=== PATIENT | female | born 1935 | race Caucasian/White ===

== ENCOUNTER → 2016-10-24 | Outpatient (CLI) | payer MEDICARE, OTHER ==
--- NOTE | 2016-10-24 09:23 | RAD ---
APPROVED REPORT Patient Location : OUT-PATIENT Indications Lower Extremity Edema : Bilateral Risk Factors Obesity Deep System Deep Venous Thrombosis present : No Deep Venous Reflux present : No Findings The bilateral greater and lesser saphenous veins were imaged for evidence of reflux. The right great saphenous vein measures approximately 8 mm at the saphenofemoral junction and does no t show any evidence of reflux. The left great saphenous vein measures approximately 8 mm and does not show any evidence of reflux. The bilateral lesser saphenous veins do not demonstrate any evidence of reflux. Limited Blanco scale imaging of the bilateral greater and lesser saphenous veins does not reveal any ev idence of thrombus. Critical Notification Critical Value: No <Conclusion> Negative for reflux of the bilateral lower extremities.
== END | disposition home or self-care (01) ==
LOC: US 08:30
PROVIDERS: ATTEND Internal Medicine Cardiovascular Disease
DX: R60.0 Localized edema (principal)
CPT/HCPCS: 93970

== ENCOUNTER 2017-07-20 14:26 | Inpatient (IN) | payer MEDICARE ==
[2017-07-20] MEDS ORDERED: 0.9 % SODIUM CHLORIDE 10 ML DISP.SYRIN. IV (15:15)
[2017-07-20 15:16] LABS: ADD MAN DIFF? NO
[2017-07-20 15:20] LABS: BASO % 0 % (0-3); EOS % 0 % (0-3); HEMOGLOBIN 13.7 g/dL (12.0-15.5); LYMPH # 1.8 x10^3/uL (1.0-4.8); LYMPH % 19 % (24-48); MEAN CORPUSCULAR HEMOGLOBIN 33 pg (25-35); MEAN CORPUSCULAR HGB CONC 34 g/dL (31-37); MEAN CORPUSCULAR VOLUME 97 fL (79-100); MONO # 0.6 x10^3/uL (0.0-1.1); MONO % 6 % (0-9); NEUT % 75 % (31-73); PLATELET COUNT 311 x10^3/uL (140-400); RED BLOOD COUNT 4.22 x10^6/uL (3.50-5.40); RED CELL DISTRIBUTION WIDTH 13.5 % (11.5-14.5); WHITE BLOOD COUNT 9.3 x10^3/uL (4.0-11.0)
[2017-07-20 15:21] LABS: BILIRUBIN,URINE MODERATE (NEG); CLARITY,URINE CLEAR; GLUCOSE,URINE NEGATIVE (NEG); NITRITE,URINE NEGATIVE (NEG); PROTEIN,URINE NEGATIVE (NEG-TRACE)
[2017-07-20 15:35] LABS: ANION GAP 10 (6-14); BLOOD UREA NITROGEN 15 mg/dL (7-20); CARBON DIOXIDE 30 mmol/L (21-32); CHLORIDE 97 mmol/L (98-107); CREATININE 0.8 mg/dL (0.6-1.0); GFR 68.8; GLUCOSE 127 mg/dL (70-99); POTASSIUM 3.7 mmol/L (3.5-5.1); SODIUM 137 mmol/L (136-145)
[2017-07-20 15:36] LABS: COLOR,URINE DK YELLOW
[2017-07-20] MEDS: ONDANSETRON PF 4 MG/2 ML VIAL. IV ×2 (15:36→21:10)
[2017-07-20 15:37] LABS: ALBUMIN 3.8 g/dL (3.4-5.0); ALK PHOS 56 U/L (46-116); ALT (SGPT) 21 U/L (14-59); AST (SGOT) 19 U/L (15-37); DIRECT BILIRUBIN 0.2 mg/dL (0.0-0.2); LIPASE 68 U/L (73-393); TOTAL BILIRUBIN 0.9 mg/dL (0.2-1.0); TOTAL PROTEIN 8.3 g/dL (6.4-8.2)
[2017-07-20] MEDS: fentaNYL PF VIAL 100 MCG/2 ML VIAL IV ×2 (15:37→19:03)
[2017-07-20] MEDS: IV NORMAL SALINE 1000ML BAG 1,000 ML IV ×2 (15:37→19:56)
[2017-07-20 15:38] LABS: BACTERIA,URINE FEW /HPF (0-FEW); RBC,URINE 0 /HPF (0-2); SQUAMOUS EPITHELIAL CELL,UR MOD /LPF
[2017-07-20 15:41] LABS: TROPONINI < 0.017 ng/mL (0.000-0.055)
[2017-07-20 15:45] LABS: CKMB INDEX 1.2 % (0-4); CKMB MASS 1.2 ng/mL (0.0-3.6); CREATINE KINASE 102 U/L (26-192)
[2017-07-20] MEDS ORDERED: ONDANSETRON PF 4 MG/2 ML VIAL. IV (18:30)
[2017-07-20] MEDS ORDERED: ACETAMINOPHEN 325 MG TABLET. PO (18:30)
[2017-07-21] MEDS: MORPHINE SULFATE 2 MG/ML DISP.SYRIN. IV ×4 (03:47→18:48)
[2017-07-21] MEDS: ONDANSETRON PF 4 MG/2 ML VIAL. IV ×3 (03:47→18:48)
[2017-07-21] MEDS: IV NORMAL SALINE 1000ML BAG 1,000 ML IV (07:30)
[2017-07-21] MEDS ORDERED: IV RINGERS,LACTATED 1000ML 1,000 ML IV (11:30)
[2017-07-21] MEDS ORDERED: PROCHLORPERAZINE 10 MG/2 ML VIAL. IV (11:45)
[2017-07-21] MEDS ORDERED: fentaNYL PF VIAL 100 MCG/2 ML VIAL IV (11:45)
[2017-07-21] MEDS ORDERED: LIDOCAINE 1% PF 2 ML VIAL. ID (11:45)
[2017-07-21] MEDS ORDERED: LIDOCAINE 2% PF Vial for OR 5 ML VIAL. (12:41)
[2017-07-21] MEDS ORDERED: PROPOFOL 20 ML IV (12:41)
[2017-07-21] MEDS ORDERED: ROCURONIUM 50 MG/5 ML VIAL. (12:41)
[2017-07-21] MEDS ORDERED: fentaNYL PF VIAL 100 MCG/2 ML VIAL ×2 (12:41→17:43)
[2017-07-21] MEDS ORDERED: GLYCOPYRROLATE 1 MG/5 ML VIAL. (16:28)
[2017-07-21] MEDS ORDERED: NEOSTIGMINE 10 MG/10 ML VIAL. (16:28)
[2017-07-21] MEDS ORDERED: ONDANSETRON PF 4 MG/2 ML VIAL. (16:28)
[2017-07-21] MEDS ORDERED: DEXAMETHASONE SOD PHOS 20 MG/5 ML VIAL. (16:28)
[2017-07-21] MEDS ORDERED: IOHEXOL 300 MG/ML 100ML VIAL. (16:30)
[2017-07-21] MEDS: SURGICEL HEMOSTAT 4X8 EACH. (16:54)
[2017-07-21] MEDS: BUPIVACAINE-EPI 0.25%-1:200000 50 ML VIAL. (16:54)
[2017-07-21] MEDS ORDERED: DESFLURANE 31 TO 60 MINUTES IH (16:57)
[2017-07-21] MEDS ORDERED: FAMOTIDINE 20 MG/2 ML VIAL (17:16)
[2017-07-21] MEDS ORDERED: PROCHLORPERAZINE 10 MG/2 ML VIAL. (17:43)
[2017-07-21] MEDS: fentaNYL PF VIAL 100 MCG/2 ML VIAL IV ×2 (17:47→18:01)
[2017-07-22] MEDS: oxyCODONE/APAP 5/325 1 TAB TABLET PO ×4 (02:12→22:35)
[2017-07-22 05:25] LABS: BASO % 0 % (0-3); EOS % 0 % (0-3); HEMATOCRIT 31.9 % (36.0-47.0); HEMOGLOBIN 10.7 g/dL (12.0-15.5); LYMPH # 0.7 x10^3/uL (1.0-4.8); LYMPH % 6 % (24-48); MEAN CORPUSCULAR HEMOGLOBIN 33 pg (25-35); MEAN CORPUSCULAR HGB CONC 34 g/dL (31-37); MEAN CORPUSCULAR VOLUME 99 fL (79-100); MONO # 0.5 x10^3/uL (0.0-1.1); MONO % 4 % (0-9); NEUT # 10.5 x10^3uL (1.8-7.7); NEUT % 89 % (31-73); PLATELET COUNT 273 x10^3/uL (140-400); RED BLOOD COUNT 3.23 x10^6/uL (3.50-5.40); RED CELL DISTRIBUTION WIDTH 13.5 % (11.5-14.5); WHITE BLOOD COUNT 11.8 x10^3/uL (4.0-11.0)
[2017-07-22 05:33] LABS: ADD MAN DIFF? YES
[2017-07-22 05:37] LABS: ANION GAP 17 (6-14); BLOOD UREA NITROGEN 14 mg/dL (7-20); CALCIUM 8.7 mg/dL (8.5-10.1); CARBON DIOXIDE 19 mmol/L (21-32); CHLORIDE 101 mmol/L (98-107); CREATININE 0.8 mg/dL (0.6-1.0); GFR 68.8; GLUCOSE 165 mg/dL (70-99); POTASSIUM 4.2 mmol/L (3.5-5.1); SODIUM 137 mmol/L (136-145)
[2017-07-22 08:51] LABS: % BANDS 6 % (0-9); % LYMPHS 4 % (24-48); % MONOS 1 % (0-10); % SEGS 89 % (35-66)
[2017-07-22 08:52] LABS: ANISOCYTOSIS SLIGHT; PLT ESTIMATE ADEQUATE (ADEQUATE); POLYCHROMASIA SLIGHT
[2017-07-22] MEDS: ONDANSETRON PF 4 MG/2 ML VIAL. IV (13:26)
[2017-07-22] MEDS: IV NORMAL SALINE 1000ML BAG 1,000 ML IV (14:45)
[2017-07-22] MEDS: MORPHINE SULFATE 2 MG/ML DISP.SYRIN. IV (16:00)
[2017-07-22 17:00] LABS: INR 1.3 (0.8-1.1); PROTHROMBIN TIME PATIENT 15.3 SEC (11.7-14.0)
[2017-07-22] MEDS: SIMETHICONE 80 MG TAB.CHEW PO ×2 (19:35→23:28)
[2017-07-23] MEDS: MORPHINE SULFATE 2 MG/ML DISP.SYRIN. IV (01:04)
[2017-07-23 04:22] LABS: ADD MAN DIFF? NO
[2017-07-23 04:40] LABS: BASO % 0 % (0-3); EOS % 0 % (0-3); HEMATOCRIT 26.8 % (36.0-47.0); HEMOGLOBIN 9.2 g/dL (12.0-15.5); LYMPH # 1.4 x10^3/uL (1.0-4.8); LYMPH % 8 % (24-48); MEAN CORPUSCULAR HEMOGLOBIN 33 pg (25-35); MEAN CORPUSCULAR HGB CONC 34 g/dL (31-37); MEAN CORPUSCULAR VOLUME 97 fL (79-100); MONO # 1.8 x10^3/uL (0.0-1.1); MONO % 10 % (0-9); NEUT # 14.4 x10^3uL (1.8-7.7); NEUT % 82 % (31-73); PLATELET COUNT 285 x10^3/uL (140-400); RED BLOOD COUNT 2.77 x10^6/uL (3.50-5.40); RED CELL DISTRIBUTION WIDTH 13.5 % (11.5-14.5); WHITE BLOOD COUNT 17.6 x10^3/uL (4.0-11.0)
[2017-07-23 04:44] LABS: ANION GAP 12 (6-14); BLOOD UREA NITROGEN 16 mg/dL (7-20); CALCIUM 8.3 mg/dL (8.5-10.1); CARBON DIOXIDE 25 mmol/L (21-32); CHLORIDE 99 mmol/L (98-107); CREATININE 0.8 mg/dL (0.6-1.0); GFR 68.8; GLUCOSE 162 mg/dL (70-99); SODIUM 136 mmol/L (136-145)
[2017-07-23] MEDS ORDERED: NON FORMULARY ITEM (Albuterol Sulfate (Albuterol Sulfate Neb Soln) 1 VIAL) NEB (08:30)
[2017-07-23] MEDS ORDERED: NON FORMULARY ITEM (Albuterol Sulfate (Ventolin Hfa Inhaler) 2 PUFF) INH (08:30)
[2017-07-23] MEDS: CHOLECALCIFEROL (VITAMIN D3) 1,000 UNIT TABLET PO (08:56)
[2017-07-23] MEDS: OMEGA-3 FATTY ACIDS/FISH OIL 1,000 MG CAPSULE. PO ×2 (08:57→21:37)
[2017-07-23] MEDS: OXYBUTYNIN CHLORIDE 5 MG TABLET PO ×2 (08:57→21:37)
[2017-07-23] MEDS: SIMETHICONE 80 MG TAB.CHEW PO ×3 (08:57→21:45)
[2017-07-23] MEDS: CITALOPRAM 10 MG TABLET. PO (08:57)
[2017-07-23] MEDS: CETIRIZINE HCL 10 MG TABLET. PO (08:57)
[2017-07-23] MEDS: MELOXICAM 7.5 MG TABLET PO (08:58)
[2017-07-23] MEDS: AZELASTINE NASAL SPRAY 30ML BOTTLE. NS ×2 (08:59→21:38)
[2017-07-23] MEDS: LISINOPRIL 20 MG TABLET PO (08:59)
[2017-07-23] MEDS: hydroCHLOROthiazide 25 MG TABLET PO (08:59)
[2017-07-23] MEDS ORDERED: FLUTICASONE 50MCG/NASAL SPRAY 16GM BOTTLE. NS (09:00)
[2017-07-23] MEDS ORDERED: NON FORMULARY ITEM (Fluticasone/Salmeterol (Advair 500-50 Diskus) 1 INH) IH (09:00)
[2017-07-23] MEDS: FLUTICASONE 50MCG/NASAL SPRAY 16GM BOTTLE. NS ×2 (09:05→21:37)
[2017-07-23] MEDS: CALCIUM CARB/VIT D3 500/200 TABLET. PO (09:09)
[2017-07-23] MEDS: BUDESONIDE 0.5 MG/2 ML NEBU. NEB ×2 (11:50→20:20)
[2017-07-23] MEDS: ALBUTEROL SULFATE 2.5 MG/3 ML NEBU. NEB ×3 (11:50→20:00)
[2017-07-23] MEDS: PANTOPRAZOLE 40 MG TABLET.DR. PO (12:42)
[2017-07-23] MEDS: ONDANSETRON PF 4 MG/2 ML VIAL. IV (12:42)
[2017-07-23] MEDS: ATORVASTATIN CALCIUM 10 MG TABLET. PO (21:37)
[2017-07-23] MEDS: MONTELUKAST SODIUM 10 MG TABLET. PO (21:37)
[2017-07-24 04:41] LABS: ADD MAN DIFF? NO
[2017-07-24 04:46] LABS: BASO % 0 % (0-3); EOS % 0 % (0-3); HEMATOCRIT 24.6 % (36.0-47.0); HEMOGLOBIN 8.3 g/dL (12.0-15.5); LYMPH # 1.1 x10^3/uL (1.0-4.8); LYMPH % 8 % (24-48); MEAN CORPUSCULAR HEMOGLOBIN 33 pg (25-35); MEAN CORPUSCULAR HGB CONC 34 g/dL (31-37); MEAN CORPUSCULAR VOLUME 97 fL (79-100); MONO # 1.6 x10^3/uL (0.0-1.1); MONO % 12 % (0-9); NEUT # 10.8 x10^3uL (1.8-7.7); NEUT % 80 % (31-73); PLATELET COUNT 244 x10^3/uL (140-400); RED BLOOD COUNT 2.53 x10^6/uL (3.50-5.40); RED CELL DISTRIBUTION WIDTH 13.8 % (11.5-14.5); WHITE BLOOD COUNT 13.6 x10^3/uL (4.0-11.0)
[2017-07-24 05:07] LABS: ANION GAP 5 (6-14); BLOOD UREA NITROGEN 24 mg/dL (7-20); CALCIUM 10.3 mg/dL (8.5-10.1); CARBON DIOXIDE 29 mmol/L (21-32); CHLORIDE 97 mmol/L (98-107); CREATININE 1.5 mg/dL (0.6-1.0); GFR 33.3; GLUCOSE 151 mg/dL (70-99); POTASSIUM 4.2 mmol/L (3.5-5.1); SODIUM 131 mmol/L (136-145)
[2017-07-24] MEDS: BUDESONIDE 0.5 MG/2 ML NEBU. NEB ×2 (07:57→20:08)
[2017-07-24] MEDS: ALBUTEROL SULFATE 2.5 MG/3 ML NEBU. NEB ×4 (07:57→20:08)
[2017-07-24 08:24] LABS: POC GLUCOSE 137 mg/dL (70-99)
[2017-07-24] MEDS: OXYBUTYNIN CHLORIDE 5 MG TABLET PO ×2 (08:35→21:26)
[2017-07-24] MEDS: CITALOPRAM 10 MG TABLET. PO (08:35)
[2017-07-24] MEDS: CHOLECALCIFEROL (VITAMIN D3) 1,000 UNIT TABLET PO (08:35)
[2017-07-24] MEDS: CETIRIZINE HCL 10 MG TABLET. PO (08:35)
[2017-07-24] MEDS: OMEGA-3 FATTY ACIDS/FISH OIL 1,000 MG CAPSULE. PO ×2 (08:35→21:26)
[2017-07-24] MEDS: PANTOPRAZOLE 40 MG TABLET.DR. PO (08:35)
[2017-07-24] MEDS: SIMETHICONE 80 MG TAB.CHEW PO (08:35)
[2017-07-24] MEDS: AZELASTINE NASAL SPRAY 30ML BOTTLE. NS ×2 (08:38→21:26)
[2017-07-24] MEDS: FLUTICASONE 50MCG/NASAL SPRAY 16GM BOTTLE. NS ×2 (08:38→21:26)
[2017-07-24] MEDS: CALCIUM CARB/VIT D3 500/200 TABLET. PO (09:00)
[2017-07-24] MEDS: MELOXICAM 7.5 MG TABLET PO (09:00)
[2017-07-24] MEDS: hydroCHLOROthiazide 25 MG TABLET PO (09:00)
[2017-07-24] MEDS: LISINOPRIL 20 MG TABLET PO (09:00)
[2017-07-24] MEDS: POTASSIUM CL 20MEQ D5-0.9%NACL 1,000 ML IV (13:44)
[2017-07-24] MEDS: MONTELUKAST SODIUM 10 MG TABLET. PO (21:26)
[2017-07-24] MEDS: ATORVASTATIN CALCIUM 10 MG TABLET. PO (21:26)
[2017-07-25] MEDS: POTASSIUM CL 20MEQ D5-0.9%NACL 1,000 ML IV ×2 (01:54→15:48)
[2017-07-25 04:28] LABS: ADD MAN DIFF? NO
[2017-07-25 04:44] LABS: BASO % 0 % (0-3); EOS % 0 % (0-3); HEMATOCRIT 22.2 % (36.0-47.0); HEMOGLOBIN 7.6 g/dL (12.0-15.5); LYMPH # 1.2 x10^3/uL (1.0-4.8); LYMPH % 14 % (24-48); MEAN CORPUSCULAR HEMOGLOBIN 34 pg (25-35); MEAN CORPUSCULAR HGB CONC 35 g/dL (31-37); MEAN CORPUSCULAR VOLUME 97 fL (79-100); MONO % 12 % (0-9); NEUT # 6.5 x10^3uL (1.8-7.7); NEUT % 74 % (31-73); PLATELET COUNT 243 x10^3/uL (140-400); RED BLOOD COUNT 2.28 x10^6/uL (3.50-5.40); RED CELL DISTRIBUTION WIDTH 13.7 % (11.5-14.5); WHITE BLOOD COUNT 8.7 x10^3/uL (4.0-11.0)
[2017-07-25 05:01] LABS: ANION GAP 5 (6-14); BLOOD UREA NITROGEN 26 mg/dL (7-20); CALCIUM 9.9 mg/dL (8.5-10.1); CARBON DIOXIDE 27 mmol/L (21-32); CHLORIDE 100 mmol/L (98-107); CREATININE 1.1 mg/dL (0.6-1.0); GFR 47.7; GLUCOSE 169 mg/dL (70-99); POTASSIUM 4.1 mmol/L (3.5-5.1); SODIUM 132 mmol/L (136-145)
[2017-07-25] MEDS: ALBUTEROL SULFATE 2.5 MG/3 ML NEBU. NEB ×4 (06:59→19:40)
[2017-07-25] MEDS: BUDESONIDE 0.5 MG/2 ML NEBU. NEB ×2 (06:59→19:40)
[2017-07-25] MEDS: CHOLECALCIFEROL (VITAMIN D3) 1,000 UNIT TABLET PO (08:09)
[2017-07-25] MEDS: SIMETHICONE 80 MG TAB.CHEW PO (08:11)
[2017-07-25] MEDS: PANTOPRAZOLE 40 MG TABLET.DR. PO (08:11)
[2017-07-25] MEDS: OMEGA-3 FATTY ACIDS/FISH OIL 1,000 MG CAPSULE. PO ×3 (08:12→20:59)
[2017-07-25] MEDS: CETIRIZINE HCL 10 MG TABLET. PO (08:12)
[2017-07-25] MEDS: OXYBUTYNIN CHLORIDE 5 MG TABLET PO ×2 (08:13→20:59)
[2017-07-25] MEDS: CITALOPRAM 10 MG TABLET. PO (08:13)
[2017-07-25] MEDS: MELOXICAM 7.5 MG TABLET PO (08:14)
[2017-07-25] MEDS: FLUTICASONE 50MCG/NASAL SPRAY 16GM BOTTLE. NS ×2 (08:15→21:00)
[2017-07-25] MEDS: AZELASTINE NASAL SPRAY 30ML BOTTLE. NS ×2 (08:15→21:00)
[2017-07-25] MEDS: hydroCHLOROthiazide 25 MG TABLET PO (08:16)
[2017-07-25] MEDS: LISINOPRIL 20 MG TABLET PO (08:16)
[2017-07-25] MEDS: CALCIUM CARB/VIT D3 500/200 TABLET. PO (08:16)
[2017-07-25 17:21] LABS: NT-PRO BNP 97 pg/mL (0-449)
[2017-07-25] MEDS: ACETAMINOPHEN 325 MG TABLET. PO (18:29)
[2017-07-25] MEDS: MONTELUKAST SODIUM 10 MG TABLET. PO (20:59)
[2017-07-25] MEDS: ATORVASTATIN CALCIUM 10 MG TABLET. PO (20:59)
[2017-07-25] MEDS: oxyCODONE/APAP 5/325 1 TAB TABLET PO (20:59)
[2017-07-26] MEDS: ACETAMINOPHEN 325 MG TABLET. PO (00:21)
[2017-07-26] MEDS: TEMAZEPAM 15 MG CAPSULE PO (00:22)
[2017-07-26] MEDS: POTASSIUM CL 20MEQ D5-0.9%NACL 1,000 ML IV ×3 (03:34→21:00)
[2017-07-26] MEDS: BUDESONIDE 0.5 MG/2 ML NEBU. NEB ×2 (07:56→18:03)
[2017-07-26] MEDS: ALBUTEROL SULFATE 2.5 MG/3 ML NEBU. NEB ×4 (07:57→18:04)
[2017-07-26] MEDS: hydroCHLOROthiazide 25 MG TABLET PO (08:26)
[2017-07-26] MEDS: PANTOPRAZOLE 40 MG TABLET.DR. PO (08:26)
[2017-07-26] MEDS: CALCIUM CARB/VIT D3 500/200 TABLET. PO (08:26)
[2017-07-26] MEDS: CITALOPRAM 10 MG TABLET. PO (08:26)
[2017-07-26] MEDS: OXYBUTYNIN CHLORIDE 5 MG TABLET PO ×2 (08:26→21:00)
[2017-07-26] MEDS: LISINOPRIL 20 MG TABLET PO (08:26)
[2017-07-26] MEDS: OMEGA-3 FATTY ACIDS/FISH OIL 1,000 MG CAPSULE. PO ×2 (08:26→21:00)
[2017-07-26] MEDS: CHOLECALCIFEROL (VITAMIN D3) 1,000 UNIT TABLET PO (08:26)
[2017-07-26] MEDS: CETIRIZINE HCL 10 MG TABLET. PO (08:26)
[2017-07-26] MEDS: AZELASTINE NASAL SPRAY 30ML BOTTLE. NS ×2 (08:27→20:59)
[2017-07-26] MEDS: FLUTICASONE 50MCG/NASAL SPRAY 16GM BOTTLE. NS ×2 (08:27→21:01)
[2017-07-26] MEDS: MELOXICAM 7.5 MG TABLET PO (08:27)
[2017-07-26 09:15] LABS: ADD MAN DIFF? NO
[2017-07-26 09:21] LABS: BASO % 0 % (0-3); EOS # 0.2 x10^3/uL (0.0-0.7); EOS % 3 % (0-3); HEMATOCRIT 21.6 % (36.0-47.0); HEMOGLOBIN 7.3 g/dL (12.0-15.5); LYMPH # 1.3 x10^3/uL (1.0-4.8); LYMPH % 17 % (24-48); MEAN CORPUSCULAR HEMOGLOBIN 33 pg (25-35); MEAN CORPUSCULAR HGB CONC 34 g/dL (31-37); MEAN CORPUSCULAR VOLUME 98 fL (79-100); MONO # 0.9 x10^3/uL (0.0-1.1); MONO % 11 % (0-9); NEUT # 5.6 x10^3uL (1.8-7.7); NEUT % 69 % (31-73); PLATELET COUNT 273 x10^3/uL (140-400); RED CELL DISTRIBUTION WIDTH 14.1 % (11.5-14.5); WHITE BLOOD COUNT 8.1 x10^3/uL (4.0-11.0)
[2017-07-26 09:31] LABS: ANION GAP 8 (6-14); BLOOD UREA NITROGEN 16 mg/dL (7-20); CARBON DIOXIDE 27 mmol/L (21-32); CHLORIDE 100 mmol/L (98-107); CREATININE 0.7 mg/dL (0.6-1.0); GFR 80.3; GLUCOSE 130 mg/dL (70-99); POTASSIUM 3.8 mmol/L (3.5-5.1); SODIUM 135 mmol/L (136-145)
[2017-07-26 18:00] LABS: IMMEDIATE SPIN CROSSMATCH 1 1
[2017-07-26] MEDS: ATORVASTATIN CALCIUM 10 MG TABLET. PO (21:00)
[2017-07-26] MEDS: MONTELUKAST SODIUM 10 MG TABLET. PO (21:00)
[2017-07-26] MEDS: FUROSEMIDE 20 MG/2 ML VIAL. IVP (21:30)
[2017-07-27 06:42] LABS: ADD MAN DIFF? NO
[2017-07-27 06:51] LABS: BASO % 1 % (0-3); EOS # 0.2 x10^3/uL (0.0-0.7); EOS % 2 % (0-3); HEMATOCRIT 26.1 % (36.0-47.0); HEMOGLOBIN 8.8 g/dL (12.0-15.5); LYMPH # 1.4 x10^3/uL (1.0-4.8); LYMPH % 15 % (24-48); MEAN CORPUSCULAR HEMOGLOBIN 32 pg (25-35); MEAN CORPUSCULAR HGB CONC 34 g/dL (31-37); MEAN CORPUSCULAR VOLUME 96 fL (79-100); MONO % 11 % (0-9); NEUT # 6.4 x10^3uL (1.8-7.7); NEUT % 71 % (31-73); PLATELET COUNT 300 x10^3/uL (140-400); RED BLOOD COUNT 2.71 x10^6/uL (3.50-5.40); RED CELL DISTRIBUTION WIDTH 15.3 % (11.5-14.5)
[2017-07-27 07:20] LABS: ANION GAP 4 (6-14); BLOOD UREA NITROGEN 12 mg/dL (7-20); CALCIUM 8.5 mg/dL (8.5-10.1); CARBON DIOXIDE 30 mmol/L (21-32); CHLORIDE 100 mmol/L (98-107); CREATININE 0.6 mg/dL (0.6-1.0); GFR 95.9; GLUCOSE 143 mg/dL (70-99); POTASSIUM 4.1 mmol/L (3.5-5.1); SODIUM 134 mmol/L (136-145)
[2017-07-27] MEDS: ALBUTEROL SULFATE 2.5 MG/3 ML NEBU. NEB ×4 (07:41→20:12)
[2017-07-27] MEDS: BUDESONIDE 0.5 MG/2 ML NEBU. NEB ×2 (07:41→20:12)
[2017-07-27] MEDS: PANTOPRAZOLE 40 MG TABLET.DR. PO (07:55)
[2017-07-27] MEDS: FLUTICASONE 50MCG/NASAL SPRAY 16GM BOTTLE. NS ×2 (07:55→20:33)
[2017-07-27] MEDS: AZELASTINE NASAL SPRAY 30ML BOTTLE. NS ×2 (07:55→20:33)
[2017-07-27] MEDS: CALCIUM CARB/VIT D3 500/200 TABLET. PO ×2 (09:00→09:14)
[2017-07-27] MEDS: OMEGA-3 FATTY ACIDS/FISH OIL 1,000 MG CAPSULE. PO ×3 (09:00→20:33)
[2017-07-27] MEDS: ACETAMINOPHEN 325 MG TABLET. PO (09:14)
[2017-07-27] MEDS: CHOLECALCIFEROL (VITAMIN D3) 1,000 UNIT TABLET PO (09:14)
[2017-07-27] MEDS: MELOXICAM 7.5 MG TABLET PO (09:15)
[2017-07-27] MEDS: CITALOPRAM 10 MG TABLET. PO (09:15)
[2017-07-27] MEDS: LISINOPRIL 20 MG TABLET PO (09:15)
[2017-07-27] MEDS: OXYBUTYNIN CHLORIDE 5 MG TABLET PO ×2 (09:15→20:33)
[2017-07-27] MEDS: hydroCHLOROthiazide 25 MG TABLET PO (09:15)
[2017-07-27] MEDS: CETIRIZINE HCL 10 MG TABLET. PO (09:15)
[2017-07-27] MEDS: MONTELUKAST SODIUM 10 MG TABLET. PO (20:33)
[2017-07-27] MEDS: ATORVASTATIN CALCIUM 10 MG TABLET. PO (20:33)
[2017-07-27] MEDS: TEMAZEPAM 15 MG CAPSULE PO (20:36)
[2017-07-28 04:09] LABS: ADD MAN DIFF? NO
[2017-07-28 04:15] LABS: BASO # 0.1 x10^3/uL (0.0-0.2); BASO % 1 % (0-3); EOS # 0.2 x10^3/uL (0.0-0.7); EOS % 2 % (0-3); HEMATOCRIT 24.8 % (36.0-47.0); HEMOGLOBIN 8.7 g/dL (12.0-15.5); LYMPH # 1.7 x10^3/uL (1.0-4.8); LYMPH % 18 % (24-48); MEAN CORPUSCULAR HEMOGLOBIN 33 pg (25-35); MEAN CORPUSCULAR HGB CONC 35 g/dL (31-37); MEAN CORPUSCULAR VOLUME 94 fL (79-100); MONO # 1.2 x10^3/uL (0.0-1.1); MONO % 13 % (0-9); NEUT # 6.5 x10^3uL (1.8-7.7); NEUT % 67 % (31-73); PLATELET COUNT 319 x10^3/uL (140-400); RED BLOOD COUNT 2.63 x10^6/uL (3.50-5.40); RED CELL DISTRIBUTION WIDTH 14.6 % (11.5-14.5); WHITE BLOOD COUNT 9.7 x10^3/uL (4.0-11.0)
[2017-07-28 04:34] LABS: ANION GAP 5 (6-14); BLOOD UREA NITROGEN 11 mg/dL (7-20); CALCIUM 8.7 mg/dL (8.5-10.1); CARBON DIOXIDE 30 mmol/L (21-32); CHLORIDE 96 mmol/L (98-107); CREATININE 0.7 mg/dL (0.6-1.0); GFR 80.3; GLUCOSE 120 mg/dL (70-99); POTASSIUM 3.6 mmol/L (3.5-5.1); SODIUM 131 mmol/L (136-145)
[2017-07-28] MEDS: FUROSEMIDE 20 MG/2 ML VIAL. IVP (08:30)
[2017-07-28] MEDS: hydroCHLOROthiazide 25 MG TABLET PO (08:31)
[2017-07-28] MEDS: CALCIUM CARB/VIT D3 500/200 TABLET. PO (08:31)
[2017-07-28] MEDS: LISINOPRIL 20 MG TABLET PO (08:31)
[2017-07-28] MEDS: OMEGA-3 FATTY ACIDS/FISH OIL 1,000 MG CAPSULE. PO ×2 (08:31→20:50)
[2017-07-28] MEDS: CHOLECALCIFEROL (VITAMIN D3) 1,000 UNIT TABLET PO (08:31)
[2017-07-28] MEDS: CITALOPRAM 10 MG TABLET. PO (08:31)
[2017-07-28] MEDS: OXYBUTYNIN CHLORIDE 5 MG TABLET PO ×2 (08:32→20:49)
[2017-07-28] MEDS: MELOXICAM 7.5 MG TABLET PO (08:32)
[2017-07-28] MEDS: CETIRIZINE HCL 10 MG TABLET. PO (08:32)
[2017-07-28] MEDS: PANTOPRAZOLE 40 MG TABLET.DR. PO (08:32)
[2017-07-28] MEDS: ALBUTEROL SULFATE 2.5 MG/3 ML NEBU. NEB ×4 (08:36→21:04)
[2017-07-28] MEDS: BUDESONIDE 0.5 MG/2 ML NEBU. NEB ×2 (08:36→21:02)
[2017-07-28] MEDS: AZELASTINE NASAL SPRAY 30ML BOTTLE. NS ×2 (08:40→20:50)
[2017-07-28] MEDS: FLUTICASONE 50MCG/NASAL SPRAY 16GM BOTTLE. NS ×2 (08:41→20:50)
[2017-07-28] MEDS: MAGNESIUM HYDROXIDE 2,400 MG/30 ML ORAL.SUSP. PO (10:23)
[2017-07-28] MEDS: POLYETHYLENE GLYCOL 3350 17 GM PACKET. PO (10:23)
[2017-07-28] MEDS: DOCUSATE SODIUM 100 MG CAPSULE. PO ×2 (10:23→20:50)
[2017-07-28] MEDS ORDERED: IOHEXOL 240 MG/ML 50ML VIAL. (13:50)
[2017-07-28] MEDS ORDERED: CONTRAST GIVEN MC (14:00)
[2017-07-28] MEDS: IOHEXOL 240 MG/ML 50ML VIAL. PO (14:57)
[2017-07-28 17:57] LABS: ALBUMIN 2.3 g/dL (3.4-5.0); ALBUMIN/GLOBULIN RATIO 0.6 (1.0-1.7); ALK PHOS 131 U/L (46-116); ALT (SGPT) 36 U/L (14-59); ANION GAP 5 (6-14); AST (SGOT) 62 U/L (15-37); BLOOD UREA NITROGEN 11 mg/dL (7-20); BUN/CREATININE RATIO 16 (6-20); CALCIUM 8.5 mg/dL (8.5-10.1); CARBON DIOXIDE 33 mmol/L (21-32); CHLORIDE 93 mmol/L (98-107); CREATININE 0.7 mg/dL (0.6-1.0); GFR 80.3; GLUCOSE 167 mg/dL (70-99); POTASSIUM 3.3 mmol/L (3.5-5.1); SODIUM 131 mmol/L (136-145); TOTAL BILIRUBIN 3.6 mg/dL (0.2-1.0); TOTAL PROTEIN 6.3 g/dL (6.4-8.2)
[2017-07-28] MEDS: MONTELUKAST SODIUM 10 MG TABLET. PO (20:49)
[2017-07-28] MEDS: ATORVASTATIN CALCIUM 10 MG TABLET. PO (20:49)
[2017-07-29] MEDS: ALBUTEROL SULFATE 2.5 MG/3 ML NEBU. NEB ×4 (08:38→20:13)
[2017-07-29] MEDS: BUDESONIDE 0.5 MG/2 ML NEBU. NEB ×2 (08:38→20:13)
[2017-07-29] MEDS: POLYETHYLENE GLYCOL 3350 17 GM PACKET. PO (09:00)
[2017-07-29] MEDS: DOCUSATE SODIUM 100 MG CAPSULE. PO ×2 (09:00→21:12)
[2017-07-29] MEDS: hydroCHLOROthiazide 25 MG TABLET PO (09:10)
[2017-07-29] MEDS: OMEGA-3 FATTY ACIDS/FISH OIL 1,000 MG CAPSULE. PO ×2 (09:10→21:00)
[2017-07-29] MEDS: LISINOPRIL 20 MG TABLET PO (09:11)
[2017-07-29] MEDS: MELOXICAM 7.5 MG TABLET PO (09:12)
[2017-07-29] MEDS: CITALOPRAM 10 MG TABLET. PO (09:12)
[2017-07-29] MEDS: CHOLECALCIFEROL (VITAMIN D3) 1,000 UNIT TABLET PO (09:12)
[2017-07-29] MEDS: CETIRIZINE HCL 10 MG TABLET. PO (09:13)
[2017-07-29] MEDS: CALCIUM CARB/VIT D3 500/200 TABLET. PO (09:13)
[2017-07-29] MEDS: OXYBUTYNIN CHLORIDE 5 MG TABLET PO ×2 (09:13→21:12)
[2017-07-29] MEDS: PANTOPRAZOLE 40 MG TABLET.DR. PO (09:15)
[2017-07-29] MEDS: FLUTICASONE 50MCG/NASAL SPRAY 16GM BOTTLE. NS ×2 (09:16→21:12)
[2017-07-29] MEDS: AZELASTINE NASAL SPRAY 30ML BOTTLE. NS ×2 (09:16→21:12)
[2017-07-29] MEDS: ONDANSETRON ODT 4 MG TAB.RAPDIS. PO ×2 (12:08→21:12)
[2017-07-29] MEDS: ATORVASTATIN CALCIUM 10 MG TABLET. PO (21:12)
[2017-07-29] MEDS: MONTELUKAST SODIUM 10 MG TABLET. PO (21:12)
[2017-07-29] MEDS: SIMETHICONE 80 MG TAB.CHEW PO (21:12)
[2017-07-29] MEDS: TEMAZEPAM 15 MG CAPSULE PO (22:41)
[2017-07-30 05:59] LABS: ALK PHOS 111 U/L (46-116); ALT (SGPT) 25 U/L (14-59); AST (SGOT) 38 U/L (15-37); DIRECT BILIRUBIN 0.6 mg/dL (0.0-0.2); TOTAL BILIRUBIN 2.1 mg/dL (0.2-1.0); TOTAL PROTEIN 5.6 g/dL (6.4-8.2)
[2017-07-30] MEDS: BUDESONIDE 0.5 MG/2 ML NEBU. NEB (06:11)
[2017-07-30] MEDS: ALBUTEROL SULFATE 2.5 MG/3 ML NEBU. NEB ×3 (06:11→15:10)
[2017-07-30] MEDS: OMEGA-3 FATTY ACIDS/FISH OIL 1,000 MG CAPSULE. PO (08:55)
[2017-07-30] MEDS: DOCUSATE SODIUM 100 MG CAPSULE. PO (08:55)
[2017-07-30] MEDS: CHOLECALCIFEROL (VITAMIN D3) 1,000 UNIT TABLET PO (08:55)
[2017-07-30] MEDS: MELOXICAM 7.5 MG TABLET PO (08:56)
[2017-07-30] MEDS: OXYBUTYNIN CHLORIDE 5 MG TABLET PO (08:56)
[2017-07-30] MEDS: CITALOPRAM 10 MG TABLET. PO (08:57)
[2017-07-30] MEDS: CETIRIZINE HCL 10 MG TABLET. PO (08:57)
[2017-07-30] MEDS: PANTOPRAZOLE 40 MG TABLET.DR. PO (08:58)
[2017-07-30] MEDS: LISINOPRIL 20 MG TABLET PO (08:58)
[2017-07-30] MEDS: CALCIUM CARB/VIT D3 500/200 TABLET. PO (08:58)
[2017-07-30] MEDS: hydroCHLOROthiazide 25 MG TABLET PO (08:58)
[2017-07-30] MEDS: POLYETHYLENE GLYCOL 3350 17 GM PACKET. PO (09:12)
[2017-07-30] MEDS: AZELASTINE NASAL SPRAY 30ML BOTTLE. NS (14:46)
[2017-07-30] MEDS: FLUTICASONE 50MCG/NASAL SPRAY 16GM BOTTLE. NS (14:46)
== END 2017-07-30 18:45 | disposition home health service (06) | DRG 853 ==
LOC: 5 NORTH 07-28 13:54 → ER 14:26 → 5 NORTH 18:26
PROC: 0FT44ZZ Resection of Gallbladder, Percutaneous Endoscopic Approach (ICD-10-PCS; principal; 2017-07-21 14:00)
PROC: 30233N1 Transfusion of Nonautologous Red Blood Cells into Peripheral Vein, Percutaneous Approach (ICD-10-PCS; 2017-07-21 16:38)
DX: A41.9 Sepsis, unspecified organism (principal); J96.01 Acute respiratory failure with hypoxia; I27.20 Pulmonary hypertension, unspecified; E66.01 Morbid (severe) obesity due to excess calories; I11.0 Hypertensive heart disease with heart failure; I50.9 Heart failure, unspecified; K56.7 Ileus, unspecified; K80.10 Calculus of gallbladder with chronic cholecystitis without obstruction; Z68.41 Body mass index [BMI] 40.0-44.9, adult; D64.9 Anemia, unspecified; E78.00 Pure hypercholesterolemia, unspecified; E78.5 Hyperlipidemia, unspecified; F41.9 Anxiety disorder, unspecified; J45.909 Unspecified asthma, uncomplicated; K21.9 Gastro-esophageal reflux disease without esophagitis; M19.90 Unspecified osteoarthritis, unspecified site; M81.0 Age-related osteoporosis without current pathological fracture; Z82.49 Family history of ischemic heart disease and other diseases of the circulatory system; Z85.3 Personal history of malignant neoplasm of breast; Z87.11 Personal history of peptic ulcer disease; Z87.891 Personal history of nicotine dependence; Z90.710 Acquired absence of both cervix and uterus; Z96.651 Presence of right artificial knee joint; F32.9 Major depressive disorder, single episode, unspecified; G89.29 Other chronic pain; H26.9 Unspecified cataract; Z88.5 Allergy status to narcotic agent; Z90.49 Acquired absence of other specified parts of digestive tract; Z90.12 Acquired absence of left breast and nipple; S30.1XXA Contusion of abdominal wall, initial encounter; X58.XXXA Exposure to other specified factors, initial encounter; Y93.89 Activity, other specified; Y92.89 Other specified places as the place of occurrence of the external cause; Y99.8 Other external cause status
CPT/HCPCS: 36415; 71045; 71046; 71250; 74018; 74176; 76705; 80048; 80053; 80076; 81001; 82553; 82962; 83690; 83880; 84484; 85007; 85025; 85379; 85610; 86850; 86900; 86901; 86920; 87086; 88304; 93005; 93306; 94640; 94760; 96374; 96375; 96376; 97110-GP; 97116-GP; 97163-GP; 97166-GO; 97530-GP; 99285; 99285-25; J0690; J1100; J2270; J2405; J2704; J2710; J3010; J3490; J7030; J7120; J7613; J7626; P9016; Q0162; Q9966; Q9967; S0028